=== PATIENT | female | born 2000 | race Caucasian/White ===

== ENCOUNTER → 2024-01-09 | Outpatient (CLI) | payer BC ==
[2024-01-09 16:38] LABS: BLOOD UREA NITROGEN 13 MG/DL (9-23); CALCIUM LEVEL 8.9 MG/DL (8.5-10.1); CARBON DIOXIDE LEVEL 26 MMOL/L (20-31); CHLORIDE LEVEL 106 MMOL/L (98-107); CREATININE FOR GFR 0.85 MG/DL (0.55-1.30); GLOMERULAR FILTRATION RATE > 60.0 (>60); GLUCOSE, FASTING 99 MG/DL (60-100); SODIUM LEVEL 139 MMOL/L (136-145)
== END ==
LOC: M LAB 14:30
PROVIDERS: ATTEND Orthopaedic Surgery
DX: Z01.818 Encounter for other preprocedural examination (principal)